=== PATIENT | female | born 1965 | race Caucasian/White ===

== ENCOUNTER 2017-01-31 15:42 | Inpatient (IN) | payer OTHER ==
[~2017-01-31] VITALS: Ht 157.5 cm; Wt 80.7 kg
[~2017-01-31 15:42] MED LIST: ATIVAN1 MG PO; ZOFRAN ODT4 MG PO
[2017-01-31 16:17] LABS: HEMATOCRIT 45.2 % (36.0-46.0); MCH 33.3 PG (29.0-34.0); MCHC 34.3 G/DL (30.0-36.0); MEAN PLAT.VOLUME 8.8 uM^3 (9.5-12.4); PLATELET COUNT 329 K/uL (156-360); RBC DIS.WIDTH-CV 13.1 % (11.8-14.6); RBC DIS.WIDTH-SD 46.6 % (39-53); RED BLOOD COUNT 4.66 M/uL (3.80-5.20); WHITE BLOOD COUNT 12.9 K/uL (4.1-10.2)
[2017-01-31 16:32] LABS: CHLORIDE 103 mEq/L (99-109); SODIUM 139 mEq/L (136-147)
[2017-01-31 16:34] LABS: GLUCOSE 146 mg/dL (70-99)
[2017-01-31 16:35] LABS: ANION GAP 14 MEQ/L (2-14)
[2017-01-31 16:38] LABS: GFR ESTIMATE (CALCULATED) > 59 mL/min/
[2017-01-31 16:39] LABS: UREA NITROGEN (BUN) 14 mg/dL (9-23)
[2017-01-31 16:42] LABS: POTASSIUM 3.4 mEq/L (3.7-5.4); TROP-I INTERPRETATION NEGATIVE; TROPONIN-I < 0.01 ng/mL (0.0-0.30)
[2017-01-31] MEDS ORDERED: AMLODIPINE BESYL5 MG PO (17:49)
[2017-01-31] MEDS ORDERED: ALEVE220 MG PO (17:50)
[2017-01-31 21:36] LABS: TOTAL BILIRUBIN 0.4 mg/dL (0.0-1.0)
[2017-01-31 21:37] LABS: ALKALINE PHOSPHATASE 99 IU/L (3-129)
[2017-01-31 21:40] LABS: DIRECT BILIRUBIN 0.2 mg/dL (0.0-0.3)
[2017-01-31 21:41] LABS: LIPASE 14 U/L (1.0-51.0)
[2017-01-31 23:40] LABS: TROP-I INTERPRETATION NEGATIVE; TROPONIN-I < 0.01 ng/mL (0.0-0.30)
[2017-02-01] VITALS (7 sets, daily range): BP systolic 112–139; BP diastolic 69–90
[2017-02-01 04:33] LABS: HEMATOCRIT 39.9 % (36.0-46.0); MCH 33.6 PG (29.0-34.0); MCHC 34.3 G/DL (30.0-36.0); MCV 97.8 FL (83-99); MEAN PLAT.VOLUME 8.8 uM^3 (9.5-12.4); PLATELET COUNT 289 K/uL (156-360); RBC DIS.WIDTH-CV 13.2 % (11.8-14.6); RED BLOOD COUNT 4.08 M/uL (3.80-5.20); WHITE BLOOD COUNT 11.5 K/uL (4.1-10.2)
[2017-02-01 04:45] LABS: CHLORIDE 107 mEq/L (99-109); POTASSIUM 3.7 mEq/L (3.7-5.4); SODIUM 139 mEq/L (136-147)
[2017-02-01 04:48] LABS: ANION GAP 8 MEQ/L (2-14); GLUCOSE 101 mg/dL (70-99)
[2017-02-01 04:50] LABS: GFR ESTIMATE (CALCULATED) > 59 mL/min/
[2017-02-01 04:51] LABS: UREA NITROGEN (BUN) 9 mg/dL (9-23)
[2017-02-01 04:55] LABS: TROP-I INTERPRETATION NEGATIVE; TROPONIN-I < 0.01 ng/mL (0.0-0.30)
[2017-02-02 04:03] VITALS: BP 107/59
[2017-02-02 05:54] LABS: HEMATOCRIT 40.9 % (36.0-46.0); MCH 32.7 PG (29.0-34.0); MCHC 33.3 G/DL (30.0-36.0); MCV 98.3 FL (83-99); MEAN PLAT.VOLUME 9.3 uM^3 (9.5-12.4); PLATELET COUNT 296 K/uL (156-360); RBC DIS.WIDTH-CV 13.2 % (11.8-14.6); RED BLOOD COUNT 4.16 M/uL (3.80-5.20); WHITE BLOOD COUNT 9.6 K/uL (4.1-10.2)
[2017-02-02 06:19] LABS: ANION GAP 8 MEQ/L (2-14); CHLORIDE 107 MEQ/L (99-109); GFR ESTIMATE (CALCULATED) > 59 mL/min/; GLUCOSE 100 mg/dL (70-99); POTASSIUM 3.7 MEQ/L (3.7-5.4); SAMPLE HEMOLYSIS CHECK 0; SAMPLE ICTERIC CHECK 0; SAMPLE LIPEMIA CHECK 0; SODIUM 140 MEQ/L (136-147); UREA NITROGEN (BUN) 12 mg/dL (9-23)
[2017-02-02 07:26] VITALS: BP 110/72
[2017-02-02 11:34] VITALS: BP 117/84
[2017-02-02 15:50] VITALS: BP 116/65
[2017-02-02 21:00] VITALS: BP 125/78
[2017-02-02 23:11] VITALS: BP 104/69
[2017-02-03 04:00] VITALS: BP 101/66
[2017-02-03 06:51] LABS: ANION GAP 10 MEQ/L (2-14); CHLORIDE 109 MEQ/L (99-109); GFR ESTIMATE (CALCULATED) > 59 mL/min/; GLUCOSE 97 mg/dL (70-99); SAMPLE HEMOLYSIS CHECK 0; SAMPLE ICTERIC CHECK 0; SAMPLE LIPEMIA CHECK 0; SODIUM 141 MEQ/L (136-147); UREA NITROGEN (BUN) 15 mg/dL (9-23)
[2017-02-03 07:23] VITALS: BP 118/76
[2017-02-03 13:11] VITALS: BP 110/71
[2017-02-03] MEDS ORDERED: PRAVASTATIN SOD40 MG PO (15:11)
[2017-02-03] MEDS ORDERED: NICOTINE PATCH1 EAC2 TD (15:11)
[2017-02-03] MEDS ORDERED: CYANOCOBALAM1000 MCG PO (15:12)
[2017-02-03] MEDS ORDERED: LOPRESSOR25 MG PO (15:12)
[2017-02-03] MEDS ORDERED: FAMOTIDINE20 MG PO (15:12)
== END 2017-02-03 15:51 | disposition home or self-care (01) | DRG 313 ==
LOC: EME 15:42 → 4EAST 20:01 → EDOF 20:01 → 4EAST 21:48
PROVIDERS: Hospitalist
DX: R07.89 Other chest pain (principal); I10 Essential (primary) hypertension; E78.2 Mixed hyperlipidemia; E87.6 Hypokalemia; E53.8 Deficiency of other specified B group vitamins; F10.10 Alcohol abuse, uncomplicated; F17.210 Nicotine dependence, cigarettes, uncomplicated; E66.9 Obesity, unspecified; Z88.7 Allergy status to serum and vaccine; Z68.31 Body mass index [BMI] 31.0-31.9, adult; Z88.0 Allergy status to penicillin
CPT/HCPCS: 36415; 71020; 71275; 78452; 80048; 80061; 80076; 82043; 82570; 82607; 83690; 83735; 84443; 84484; 85025; 85027; 93005; 93017; 99281; 99285; A9500; J1650; J2270; J2405; J7030

== ENCOUNTER 2017-03-10 06:34 | Day surgery (SDC) | payer OTHER ==
[~2017-03-10] VITALS: Ht 157.5 cm; Wt 82.0 kg
[~2017-03-10 06:34] MED LIST changes: +ALEVE220 MG PO; +AMLODIPINE BESYL5 MG PO; +CYANOCOBALAM1000 MCG PO; +FAMOTIDINE20 MG PO; +LOPRESSOR25 MG PO; +NICOTINE PATCH1 EAC2 TD; +PRAVASTATIN SOD40 MG PO
[2017-03-10 07:11] VITALS: BP 118/73
[2017-03-10] MEDS ORDERED: HYDROCODON-ACE1 EAC7 PO (09:10)
[2017-03-10] MEDS ORDERED: IBUPROFEN800 MG PO (09:10)
[2017-03-10 10:01] VITALS: BP 130/74
[2017-03-10 11:14] VITALS: BP 112/67
== END 2017-03-10 11:17 | disposition home or self-care (01) ==
LOC: SDC 06:34
PROC: 0UDB8ZX Extraction of Endometrium, Via Natural or Artificial Opening Endoscopic, Diagnostic (ICD-10-PCS; principal; 2017-03-10)
DX: N92.0 Excessive and frequent menstruation with regular cycle (principal); N85.4 Malposition of uterus; F17.200 Nicotine dependence, unspecified, uncomplicated; J44.9 Chronic obstructive pulmonary disease, unspecified; I10 Essential (primary) hypertension; K21.9 Gastro-esophageal reflux disease without esophagitis; Z88.0 Allergy status to penicillin; Z88.7 Allergy status to serum and vaccine
CPT/HCPCS: 88305; J1100; J2250; J2405; J3010